=== PATIENT | female | born 1960 | race Caucasian/White ===

== ENCOUNTER → 2020-02-20 22:05 | Outpatient (CLI) | payer OTHER | END | disposition home or self-care (01) | LOC: D.MAMMO 02-09 11:15 | PROVIDERS: ATTEND Family Medicine | DX: Z12.31 Encounter for screening mammogram for malignant neoplasm of breast (principal) ==

== ENCOUNTER 2020-03-21 13:30 | Outpatient (CLI) | payer OTHER | END 2020-03-21 14:00 | disposition home or self-care (01) | LOC: D.MAMMO 13:30 | PROVIDERS: ATTEND Family Medicine | DX: R92.8 Other abnormal and inconclusive findings on diagnostic imaging of breast (principal) ==

== ENCOUNTER → 2020-04-03 07:45 | Outpatient (CLI) | payer OTHER | END | disposition home or self-care (01) | LOC: D.US 03-30 11:00 | PROVIDERS: ATTEND Family Medicine | DX: R92.8 Other abnormal and inconclusive findings on diagnostic imaging of breast (principal); N60.02 Solitary cyst of left breast ==

== ENCOUNTER → 2020-04-23 12:32 | Outpatient (CLI) | payer OTHER | END | disposition home or self-care (01) | LOC: D.US 12:32 | PROVIDERS: ATTEND Family Medicine | DX: R92.8 Other abnormal and inconclusive findings on diagnostic imaging of breast (principal) ==